=== PATIENT | male | born 1965 | race Caucasian/White ===

== ENCOUNTER → 2017-02-23 | Outpatient (CLI) | payer OTHER ==
--- NOTE | 2017-02-24 10:19 | KCIC ---
PROCEDURE MR of the right upper arm HISTORY Distal biceps tendon pain after an injury. COMPARISON None TECHNIQUE Routine multiplanar sequences are obtained, focused on the mid to distal humerus. FINDINGS The biceps muscle and other muscle tissue at the upper arm appears intact. No acute hematoma or fluid collection. No evidence of acute edema. The visualized humerus appears intact without marrow edema or bone destruction. Note this is not a diagnostic exam of the elbow region. There is some hypointense thickening of the distal biceps tendon just above the elbow joint but visualization is limited as this is at the edge of the coil coverage. The tendon does not appear to extend beyond roughly the level of the joint, and findings are thought to be compatible with a chronic rupture with about 4 or 5 cm proximal retraction. IMPRESSION 1. 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 Dedicated MR of the elbow could better characterize. 2. Otherwise no acute findings identified in the right upper arm. Electronically signed by: Zaheer Madison MD (Feb 24, 2017 10:18:30)
== END | disposition home or self-care (01) ==
LOC: KCIC MRI 16:59
PROVIDERS: ATTEND Family Medicine
DX: S46.211A Strain of muscle, fascia and tendon of other parts of biceps, right arm, initial encounter (principal); W19.XXXA Unspecified fall, initial encounter; Y93.89 Activity, other specified; Y92.89 Other specified places as the place of occurrence of the external cause; Y99.8 Other external cause status
CPT/HCPCS: 73218